=== PATIENT | female | born 1965 | race Caucasian/White ===

== ENCOUNTER 2022-09-23 22:08 | Emergency (ER) | payer OTHER, SELFPAY ==
[2022-09-23 22:18] VITALS: BP 117/69; PULSE 85; RESP 18; TEMP 36.6; O2SAT 100; BMI 20.7
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
--- NOTE | 2022-09-24 00:04 | DI.RAD.S_ITS ---
PROCEDURE: XR FOOT LT MIN 3V INDICATIONS: large lac to foot. TECHNIQUE: 3 views of the foot were acquired. COMPARISON: None. FINDINGS: Bones: No fractures or dislocations. No suspicious bony lesions. Soft tissues: There is a plantar soft tissue laceration in the forefoot. No radiopaque foreign bodies. IMPRESSION: 1. No fracture or dislocation. Dictated by: Zac Wetzel M.D. on 09/24/2022 at 0:23 Approved by: Zac Wetzel M.D. on 09/24/2022 at 0:43
[2022-09-24] MEDS: LIDOCAINE 2% INJ SDV 5ML 15 ML INJ (00:36)
[2022-09-24] MEDS: CIPROFLOXACIN 250 MG TABLET 750 MG PO (02:13)
[2022-09-24] MEDS: ACETAMINOPHEN 325 MG TABLET 975 MG PO (02:13)
--- NOTE | 2022-09-24 02:21 | PC.NURSE ---
Wound cleansed & dressed with non adhering pad & kerlex. Walking shoe placed & crutch training done.
[2022-09-24 02:23] VITALS: BP 118/70; PULSE 72; RESP 16; TEMP 36.4; O2SAT 99
== END 2022-09-24 02:15 | disposition home or self-care (01) ==
PROVIDERS: Emergency Provider Emergency Medicine
DX: S91.312A Laceration without foreign body, left foot, initial encounter (principal); W10.9XXA Fall (on) (from) unspecified stairs and steps, initial encounter; Y92.814 Boat as the place of occurrence of the external cause
CPT/HCPCS: 12004; 73630; 99283